=== PATIENT | male | born 1950 | race Caucasian/White ===

== ENCOUNTER 2025-06-28 20:08 | Emergency (ER) | payer OTHER ==
[~2025-06-28] VITALS: Ht 167.6 cm; Wt 52.6 kg
[~2025-06-28 20:08] MED LIST: ALTACE10 MG PO; AMARYL PO; ASA81 MG PO; NABUMETONE500 MG PO; PERCOCET 5/3251 TAB PO; ZOCOR5 MG PO; ZYLOPRIM100 MG PO
[2025-06-28] MEDS ORDERED: TENORMIN25 MG (20:12)
[2025-06-28] MEDS ORDERED: ONDANSETRON HCL 2 MG/ML VIAL IV ONE (20:30)
[2025-06-28] MEDS ORDERED: PANTOPRAZOLE SODIUM 40 MG/VIAL VIAL IV ONE (20:30)
[2025-06-28] MEDS ORDERED: 0.9 % SODIUM CHLORIDE 1,000 ML IV ONE (20:45)
[2025-06-28] MEDS ORDERED: ONDANSETRON HCL 2 MG/ML VIAL ONE (21:02)
[2025-06-28 21:10] LABS: BASO % 0.3 % (0.1-1.2); EOS # 0.00 (0.04-0.54); EOS % 0.0 % (0.7-7.0); LYMPH # 0.60 (1.18-3.74); LYMPH % 5.3 % (19.3-53.1); MEAN PLATELET VOLUME 11.80 fl (9.4-12.4); MONO # 0.24 (0.24-0.82); MONO % 2.1 % (4.7-12.5); NEUT # 10.32 (1.56-6.13); NEUT % 92.0 % (34.0-71.1); RED CELL DISTRIBUTION WIDTH 12.5 % (11.6-14.4)
[2025-06-28] MEDS ORDERED: PIPERACILLIN/TAZOBACTAM SODIUM 3.375 GM VIAL IV ONE ×2 (21:30→23:31)
[2025-06-28 21:40] LABS: INR 1.03
[2025-06-28 21:44] LABS: ALT/SGPT 20.0 U/L (12-78); AST/SGOT 13.0 U/L (15-37); BILIRUBIN TOTAL 0.53 mg/dL (0.3-1.2); BUN CREA RATIO 22.0 (7.0-25.0); CREATININE SERUM 1.16 mg/dL (0.70-1.30); GFR 61.89; GLOBULINA 4.1 G/DL (2.4-3.5); OSMOLALITY SERUM 299.0 MOSM/KG (275-295)
[2025-06-28 22:00] LABS: GLUCOSE FASTING 228.0 mg/dL (65-100)
[2025-06-28] MEDS ORDERED: INSULIN REGULAR, HUMAN 1,000 UNIT/10 ML UNITS SUBCUTANEO ONE (22:15)
[2025-06-28 23:12] LABS: URINE APPEARANCE Clear; URINE BILIRRUBIN Negative (NEGATIVE); URINE BLOOD Moderate; URINE COLOR Yellow; URINE KETONE 15 (NEGATIVE); URINE LEUKOCYTE Negative; URINE NITRATE Negative; URINE PROTEIN 30 (NEGATIVE); URINE UROBILINOGEN 0.2 E.U./dl
[2025-06-28 23:15] LABS: URINE BACTERIA 31.1 uL (0.0-1933); URINE EPITHELIAL CELLS 4.4 uL (0.0-38.8); URINE RBC 162.0 uL (0.0-20.8); URINE WBC 6.4 uL (0.0-23.2)
[2025-06-28 23:19] LABS: URINE CAST 0.29 uL (0.0-1.40); URINE GLUCOSE >=1000 MG/DL (NEGATIVE)
[2025-06-29] MEDS ORDERED: PROTONIX40 MG PO (04:23)
[2025-06-29 05:26] VITALS: BP 133/75; O2SAT 100
== END 2025-06-29 05:27 ==
LOC: ER 20:08
PROVIDERS: General Practice
DX: K92.0 Hematemesis (principal); R53.1 Weakness; I10 Essential (primary) hypertension; E11.9 Type 2 diabetes mellitus without complications
CPT/HCPCS: 36415; 51702; 71045; 71260; 74177; 93005; 93041; 96365; 96366; 99284; J2405; J2543 ×2; J3490; J7030; Q9965